=== PATIENT | male | born 1995 | race Caucasian/White ===

== ENCOUNTER 2018-01-19 21:29 | Emergency (ER) | payer BC ==
[~2018-01-19] VITALS: Ht 188 cm; Wt 113.4 kg
[2018-01-19 21:41] VITALS: BP 152/99
[2018-01-19] MEDS ORDERED: DIPHTH,PERTUSS(ACELL),TET TOX 0.5 ML DISP.SYRIN. VAX IM ONE (22:00)
[2018-01-19] MEDS ORDERED: FLUORESCEIN OPHTH TEST STRIP. ONE (22:00)
[2018-01-19] MEDS ORDERED: TETRACAINE 0.5% OPHTH SOLUTION 4ML BOTTLE. ONE (22:01)
[2018-01-19] MEDS ORDERED: PROPARACAINE/FLUORESCEIN 0.5 ML OPHTH DROPS. OS ONE (22:15)
--- NOTE | 2018-01-19 22:34 | PHYS DOC ---
Past Medical History Past Medical History: Hypertension Alcohol Use: None Drug Use: None Adult General Chief Complaint Chief Complaint: FOREIGN BODY/EYES HPI HPI Patient is a 22 year old male who was doing some grinding work yesterday and today. He was wearing a shield but thinks metal might have gotten in his eye. Pt wears glasses but denies prior eye surgeries. He did have metal in his eye prior about 5 years ago as well. His tetanus is not up to date. Review of Systems Review of Systems Constitutional: Denies fever or chills Eyes: Reports foreign body in L eye that he can see when looking in the mirror. HENT: Denies nasal congestion or sore throat Respiratory: Denies cough or shortness of breath Cardiovascular: Denies chest pain. GI: Denies abdominal pain, nausea, vomiting, bloody stools or diarrhea Musculoskeletal: Denies back pain or joint pain Integument: Denies rash or skin lesions Neurologic: Denies headache, focal weakness or sensory changes All other systems were reviewed and found to be within normal limits, except as documented in this note. Current Medications Current Medications Current Medications Medications (Trade) Dose Ordered Sig/Kasandra Start Time Stop Time Status Last Admin Dose Admin Diphtheria/ Tetanus/Acell Pertussis (Boostrix) 0.5 ml ONCE ONCE 01/19/18 22:00 01/19/18 22:07 DC 01/19/18 22:09 0.5 ML Fluorescein Sodium (Ful-Liz) 1 strip STK-MED ONCE 01/19/18 22:00 01/19/18 22:01 DC Proparacaine HCl/ Fluorescein Sodium (Flucaine Eye Drops) 1 drop 1X ONCE 01/19/18 22:15 01/19/18 22:16 DC Tetracaine HCl (Tetracaine) 40 drop STK-MED ONCE 01/19/18 22:01 01/19/18 22:02 DC Allergies Allergies Allergies Coded Allergies Type Severity Reaction Last Updated Verified celery Allergy Unknown 01/19/18 Yes Physical Exam Physical Exam Constitutional: Well developed, well nourished, no acute distress, non-toxic appearance. HENT: Normocephalic, atraumatic, bilateral external ears normal, oropharynx moist, no oral exudates, nose normal. Eyes: PERRLA, EOMI, there is a FB present in 6 Oclock region of iris. Neck: Normal range of motion, no tenderness, supple, no stridor. Cardiovascular:Heart rate regular rhythm, no murmur Lungs & Thorax: Bilateral breath sounds clear to auscultation Abdomen: Bowel sounds normal, soft, no tenderness, no masses, no pulsatile masses. Skin: Warm, dry, no erythema, no rash. Back: No tenderness, no CVA tenderness. Extremities: No tenderness, no cyanosis, no clubbing, ROM intact, no edema. Neurologic: Alert and oriented X 3, normal motor function, normal sensory function, no focal deficits noted. Psychologic: Affect normal, judgement normal, mood normal. Current Patient Data Vital Signs Vital Signs Date Time Temp Pulse Resp B/P (MAP) Pulse Ox O2 Delivery O2 Flow Rate FiO2 01/19/18 21:41 98.8 88 18 152/99 (116) Room Air 98.8 EKG EKG [] Radiology/Procedures Radiology/Procedures [] Course & Med Decision Making Course & Med Decision Making Pertinent Labs and Imaging studies reviewed. (See chart for details) Pt will follow up with his opthomologist tomorrow for re-evaluation. Dragon Disclaimer Dragon Disclaimer This electronic medical record was generated, in whole or in part, using a voice recognition dictation system. PROCEDURE Procedure eye was anesthetized with tetracaine and then stained with Fluoresceine. A FB or rust ring was identified at [address] Mccray then examined pt with the slit lamp and determined it was a rust ring. The eye macrina was then used by Dr. Mccray and the rust ring was removed. Departure Departure Impression: Primary Impression: Corneal foreign body Disposition: 01 HOME, SELF-CARE Condition: IMPROVED Referrals: ROXANNA REHMAN MD (PCP) Patient Instructions: Eye - Corneal Foreign Body Additional Instructions: We recommend you follow up with opthomology for re-evaluation. Scripts Hydrocodone/Apap 5-325 (NORCO 5-325 TABLET) 1 Each Tablet 1-2 TAB PO Q4-6HRS, #15 TAB Prov: RASHAAD RAMON 01/19/18 Erythromycin Base (Erythromycin) 1 Gm Oint...g. 1 GM OP Q4HRS W/A for 7 Days, #1 MISC Prov: RASHAAD RAMON 01/19/18 RASHAAD RAMON Jan 19, 2018 22:34
[2018-01-19] MEDS ORDERED: HYDR-971 PO (23:05)
[2018-01-19] MEDS ORDERED: ERYT1OIN6 OP (23:05)
== END 2018-01-19 23:20 | disposition home or self-care (01) ==
LOC: ER 21:29
DX: T15.02XA Foreign body in cornea, left eye, initial encounter (principal); I10 Essential (primary) hypertension; Z91.018 Allergy to other foods; X58.XXXA Exposure to other specified factors, initial encounter; Y93.89 Activity, other specified; Y92.89 Other specified places as the place of occurrence of the external cause; Y99.8 Other external cause status
CPT/HCPCS: 65222; 90471; 90715; 99284

== ENCOUNTER 2018-08-14 05:39 | Emergency (ER) | payer BC, OTHER ==
[~2018-08-14] VITALS: Ht 188 cm; Wt 117.9 kg
[~2018-08-14 05:39] MED LIST: ERYT1OIN6 OP; HYDR-3164 PO
--- NOTE | 2018-08-14 06:29 | PHYS DOC ---
Past Medical History Past Medical History: Hypertension Past Surgical History: Other Additional Past Surgical Histo: Adenoids Alcohol Use: Occasionally Drug Use: None Adult General Chief Complaint Chief Complaint: ABDOMINAL PAIN HPI HPI Patient is a 23 year old male who presents to the ER for evaluation of abdominal pain. Patient states that he had onset of some mild periumbilical abdominal pain history afternoon. States that this felt like a pulled muscle. Not aggravated by dyspnea. Woke up at approximately 2 or 3 AM with progressive abdominal pain. Pain is now constant, 5-6 out of 10, remains periumbilical, positive nausea, positive vomiting. No diarrhea, no constipation, no fever, no GI bleed symptoms. No previous episodes. Passing flatus, positive diarrhea. Review of Systems Review of Systems Constitutional: Denies fever or chills [] Eyes: Denies change in visual acuity, redness, or eye pain [] HENT: Denies nasal congestion or sore throat [] Respiratory: Denies cough or shortness of breath [] Cardiovascular: No additional information not addressed in HPI [] GI: +abdominal pain, +nausea, +vomiting, + diarrhea, no GI bleed symptoms. : Denies dysuria or hematuria [] Musculoskeletal: Denies back pain or joint pain [] Integument: Denies rash or skin lesions [] Neurologic: Denies headache, focal weakness or sensory changes [] Endocrine: Denies polyuria or polydipsia [] All other systems were reviewed and found to be within normal limits, except as documented in this note. Current Medications Current Medications Current Medications Medications (Trade) Dose Ordered Sig/Kasandra Start Time Stop Time Status Last Admin Dose Admin Info (CONTRAST GIVEN -- Rx MONITORING) 1 each PRN DAILY PRN 08/14/18 08:00 08/14/18 08:59 DC Iohexol (Omnipaque 300 Mg/ml) 75 ml 1X ONCE 08/14/18 08:00 08/14/18 08:01 DC 08/14/18 07:58 75 ML Morphine Sulfate (Morphine Sulfate) 4 mg 1X ONCE 08/14/18 07:45 08/14/18 07:52 DC 08/14/18 08:06 4 MG Multi-Ingredient Mouthwash/Gargle (Gi Cocktail) 20 ml ONCE ONCE 08/14/18 07:15 08/14/18 07:16 DC 4/18/19 07:19 20 ML Ondansetron HCl (Zofran) 8 mg 1X ONCE 08/14/18 06:30 08/14/18 06:31 DC 08/14/18 06:39 8 MG Allergies Allergies Allergies Coded Allergies Type Severity Reaction Last Updated Verified celery Allergy Unknown 01/19/18 Yes Physical Exam Physical Exam Constitutional: Well developed, well nourished, appears mildly uncomfortable, nontoxic appearing. HENT: Normocephalic, atraumatic, Eyes: PERRLA, EO Neck: Normal range of motion, no tenderness, supple, no stridor. [] Cardiovascular:Heart rate regular rhythm, no murmur [] Lungs & Thorax: Bilateral breath sounds clear to auscultation [] Abdomen: Bowel sounds normal, soft, mild to moderate periumbilical tenderness, no masses, no pulsatile masses. No guarding, no rebound tenderness.[] Skin: Warm, dry, no erythema, no rash. [] Back: No tenderness, no CVA tenderness. [] Extremities: No tenderness, no cyanosis, no clubbing, ROM intact, no edema. [] Neurologic: Alert and oriented X 3no focal deficits noted. [] Psychologic: Affect normal, judgement normal, mood normal. [] Current Patient Data Vital Signs Vital Signs Date Time Temp Pulse Resp B/P (MAP) Pulse Ox O2 Delivery O2 Flow Rate FiO2 08/14/18 08:08 86 20 142/74 (96) 99 Room Air 08/14/18 05:53 98.6 98.6 Lab Values Laboratory Tests Test 08/14/18 06:27 White Blood Count 5.7 x10^3/uL (4.0-11.0) Red Blood Count 4.98 x10^6/uL (4.30-5.70) Hemoglobin 15.0 g/dL (13.0-17.5) Hematocrit 43.1 % (39.0-53.0) Mean Corpuscular Volume 87 fL (79-100) Mean Corpuscular Hemoglobin 30 pg (25-35) Mean Corpuscular Hemoglobin Concent 35 g/dL (31-37) Red Cell Distribution Width 13.1 % (11.5-14.5) Platelet Count 217 x10^3/uL (140-400) Neutrophils (%) (Auto) 54 % (31-73) Lymphocytes (%) (Auto) 32 % (24-48) Monocytes (%) (Auto) 9 % (0-9) Eosinophils (%) (Auto) 5 % (0-3) H Basophils (%) (Auto) 1 % (0-3) Neutrophils # (Auto) 3.1 x10^3uL (1.8-7.7) Lymphocytes # (Auto) 1.8 x10^3/uL (1.0-4.8) Monocytes # (Auto) 0.5 x10^3/uL (0.0-1.1) Eosinophils # (Auto) 0.3 x10^3/uL (0.0-0.7) Basophils # (Auto) 0.0 x10^3/uL (0.0-0.2) Sodium Level 139 mmol/L (136-145) Potassium Level 4.0 mmol/L (3.5-5.1) Chloride Level 101 mmol/L (98-107) Carbon Dioxide Level 28 mmol/L (21-32) Anion Gap 10 (6-14) Blood Urea Nitrogen 17 mg/dL (8-26) Creatinine 1.2 mg/dL (0.7-1.3) Estimated GFR (Cockcroft-Gault) 74.4 BUN/Creatinine Ratio 14 (6-20) Glucose Level 114 mg/dL (70-99) H Calcium Level 9.2 mg/dL (8.5-10.1) Total Bilirubin 0.5 mg/dL (0.2-1.0) Aspartate Amino Transferase (AST) 20 U/L (15-37) Alanine Aminotransferase (ALT) 33 U/L (16-63) Alkaline Phosphatase 92 U/L (46-116) Total Protein 8.4 g/dL (6.4-8.2) H Albumin 4.0 g/dL (3.4-5.0) Albumin/Globulin Ratio 0.9 (1.0-1.7) L Lipase 90 U/L (73-393) Laboratory Tests 08/14/18 06:27 Laboratory Tests 08/14/18 06:27 EKG EKG [] Radiology/Procedures Radiology/Procedures CT ABD/Pelvis Impression: Mesenteric lymph nodes are present but not enlarged. Findings raise question of mesenteritis. Appendix is normal. PQRS Compliance Statement: One or more of the following individualized dose reduction techniques were utilized for this examination: 1. Automated exposure control 2. Adjustment of the mA and/or kV according to patient size 3. Use of iterative reconstruction technique Electronically signed by: Srinivas Mancera MD (08/14/2018 8:23 AM) [id number][] Course & Med Decision Making Course & Med Decision Making Pertinent Labs and Imaging studies reviewed. (See chart for details) []0743: Labs overall reassuring with no elevation in white count alert, LFTs, bili levels. On repeat patient continues to be nontoxic appearing but reports abdominal pain is migrating down. Patient does now seem to have some mild right lower quadrant tenderness. There is no guarding, no rebound tenderness. Will get CT abdomen and pelvis to further eval for possible early appendicitis. 0835: CT with no acute findings and likely more consistent with viral gastroenteritis. On repeat exam patient is feeling better. He is tolerating by mouth. Labs and imaging discussed. Discussed supportive care. Discussed possibility of presentation to early pathology to be present on labs and imaging. ER return precautions given. Patient verbalized understanding. All questions answered. Dragon Disclaimer Dragon Disclaimer This electronic medical record was generated, in whole or in part, using a voice recognition dictation system. Departure Departure Impression: Primary Impression: Gastroenteritis Additional Impression: Abdominal pain Disposition: 01 HOME, SELF-CARE Condition: STABLE Referrals: ROXANNA REHMAN MD (PCP) Patient Instructions: Viral Gastroenteritis Additional Instructions: Thank you for coming to [facility]. Please read the attached handouts. Please follow-up with your primary care physician. Return to the ER if your symptoms worsen or you have any other concerns. Please take ibuprofen and Tylenol [id number] as needed for pain. Please see the prescribed medication for intractable nausea/vomiting. Drink plenty of fluids. Avoid dairy- containing products until the diarrhea resolves. Advance your diet very slowly. Scripts Ondansetron Hcl (ZOFRAN) 4 Mg Tablet 8 MG PO PRN TID PRN for vo, #10 nausea/vomiting Prov: MAGGIE TRAVIS DO 08/14/18 Problem Qualifiers MAGGIE TRAVIS DO Aug 14, 2018 06:28
[2018-08-14] MEDS ORDERED: MORPHINE SULFATE 4 MG/ML VIAL. IV ONE ×2 (06:30→07:45)
[2018-08-14] MEDS ORDERED: ONDANSETRON PF 4 MG/2 ML VIAL. IV ONE (06:30)
[2018-08-14 06:39] LABS: BASO % 1 % (0-3); EOS # 0.3 x10^3/uL (0.0-0.7); EOS % 5 % (0-3); HEMATOCRIT 43.1 % (39.0-53.0); LYMPH # 1.8 x10^3/uL (1.0-4.8); LYMPH % 32 % (24-48); MEAN CORPUSCULAR HEMOGLOBIN 30 pg (25-35); MEAN CORPUSCULAR HGB CONC 35 g/dL (31-37); MEAN CORPUSCULAR VOLUME 87 fL (79-100); MONO # 0.5 x10^3/uL (0.0-1.1); MONO % 9 % (0-9); NEUT # 3.1 x10^3uL (1.8-7.7); NEUT % 54 % (31-73); PLATELET COUNT 217 x10^3/uL (140-400); RED BLOOD COUNT 4.98 x10^6/uL (4.30-5.70); RED CELL DISTRIBUTION WIDTH 13.1 % (11.5-14.5); WHITE BLOOD COUNT 5.7 x10^3/uL (4.0-11.0)
[2018-08-14 06:51] LABS: CALCIUM 9.2 mg/dL (8.5-10.1); CREATININE 1.2 mg/dL (0.7-1.3); GFR 74.4
[2018-08-14 06:57] LABS: ALBUMIN/GLOBULIN RATIO 0.9 (1.0-1.7); TOTAL BILIRUBIN 0.5 mg/dL (0.2-1.0); TOTAL PROTEIN 8.4 g/dL (6.4-8.2)
[2018-08-14] MEDS ORDERED: LIDO:MAALOX 1:1 20 ML SINGLE DOSE. PO ONE (07:15)
[2018-08-14] MEDS ORDERED: CONTRAST GIVEN. MC PRN (08:00)
[2018-08-14] MEDS ORDERED: IOHEXOL 300 MG/ML 100ML VIAL. IV ONE (08:00)
[2018-08-14 08:08] VITALS: BP 142/74
--- NOTE | 2018-08-14 08:26 | RAD ---
Examination: CT ABD PELV W/ IV CONTRST ONLY History: EVAL FOR APPY ABD PAIN NV INJ 75ML OMNI 300 NO PREV Comparison/Correlation: None Findings: Axial images of the abdomen and pelvis were obtained following IV contrast. Sagittal and coronal reformatted images were provided. Visualized lung bases are clear. Liver, spleen, pancreas, and adrenal glands are normal. The kidneys are unremarkable. Mesenteric lymph nodes are present but not enlarged. Gallbladder fossa is unremarkable. Appendix is normal. No extraluminal gas. No bowel obstruction. No enlarged abdominal or pelvic lymph nodes. Urinary bladder is mostly decompressed. Bony structures are unremarkable. Impression: Mesenteric lymph nodes are present but not enlarged. Findings raise question of mesenteritis. Appendix is normal. PQRS Compliance Statement: One or more of the following individualized dose reduction techniques were utilized for this examination: 1. Automated exposure control 2. Adjustment of the mA and/or kV according to patient size 3. Use of iterative reconstruction technique Electronically signed by: Srinivas Mancera MD (08/14/2018 8:23 AM) [id number]
[2018-08-14] MEDS ORDERED: ONDA4TAB7 PO (08:35)
== END 2018-08-14 08:50 | disposition home or self-care (01) ==
LOC: ER 05:39
DX: K52.9 Noninfective gastroenteritis and colitis, unspecified (principal); I10 Essential (primary) hypertension; Z91.018 Allergy to other foods
CPT/HCPCS: 36415; 74177; 80053; 83690; 85025; 96374; 96375; 96376; 99285; J2270; J2405; Q9967